=== PATIENT | male | born 1985 | race Caucasian/White ===

== ENCOUNTER 2017-02-23 21:45 | Emergency (ER) | payer SELFPAY ==
[2017-02-23 21:46] VITALS: O2SAT 98
[2017-02-23 22:04] VITALS: TEMP 98.6
[2017-02-23 22:38] LABS: BASOPHILS % (AUTO) 1 % (0-3); EOSINOPHILS % (AUTO) 1 % (0-9); HEMATOCRIT 47 % (39-53); MEAN CORPUSCULAR HGB CONC 35.3 gm/dl (32.0-36.0); MEAN CORPUSCULAR VOLUME 85 fL (80-100); MONOCYTES % (AUTO) 5.3 % (0-12); NEUTROPHILS % (AUTO) 74.3 % (37-80)
[2017-02-23 22:44] VITALS: BP 135/85; PULSE 82; RESP 18
[2017-02-23 22:48] LABS: CALCIUM 9.1 mg/dl (8.5-10.1)
== END 2017-02-23 23:11 | disposition home or self-care (01) | DRG 204 ==
LOC: ED 21:45
DX: R07.81 Pleurodynia (principal); M25.512 Pain in left shoulder; S00.83XA Contusion of other part of head, initial encounter; M25.531 Pain in right wrist; R51 Headache; Y09 Assault by unspecified means; R40.2362 Coma scale, best motor response, obeys commands, at arrival to emergency department; R40.2142 Coma scale, eyes open, spontaneous, at arrival to emergency department; R40.2252 Coma scale, best verbal response, oriented, at arrival to emergency department
CPT/HCPCS: 70450; 70486; 71010; 72125; 73030; 73100; 80048; 85025; 99283